=== PATIENT | male | born 2005 | race Caucasian/White ===

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

== ENCOUNTER → 2024-07-09 | Outpatient (CLI) | payer OTHER ==
--- NOTE | 2024-07-09 14:09 | CT ---
EXAMINATION TYPE: CT chest abdomen w con DATE OF EXAM: 07/09/2024 COMPARISON: NONE CLINICAL INDICATION: Male, 19 years old with history of R61 GENERALIZED HYPERHIDROSIS, Night sweats, TECHNIQUE: CT scan of the thorax and abdomen are performed with oral and with IV Contrast, patient injected with 100 mL of Isovue 300. CT DLP: 479.6 mGycm. Automated Exposure Control for Dose Reduction was Utilized. FINDINGS: LUNGS: The lungs are grossly clear, there is no concerning parenchymal mass or focal consolidation id entified. There is no pleural effusion or pneumothorax seen. The tracheobronchial tree is patent. HEART: Size within normal limits. No significant coronary artery calcifications. MEDIASTINUM: There are no greater than 1 cm hilar or mediastinal lymph nodes. No pericardial effusi on is seen. LIVER/GB: Hepatomegaly at 19.1 cm long axis coronal image 35. PANCREAS: No significant abnormality is seen. SPLEEN: No significant abnormality is seen. ADRENALS: No significant abnormality is seen. KIDNEYS: Symmetric cortical medullary uptake and excretion without hydronephrosis seen bilaterally. BOWEL: Oral contrast does not reach colonic level making evaluation of distal bowel slightly suboptim al. Patient also has low-level internal fat making evaluation slightly suboptimal. No abnormal small or large bowel dilatation is seen. LYMPH NODES: No greater than 1cm abdominal lymph nodes are appreciated. OSSEOUS STRUCTURES: There is S-shaped scoliotic curvature. Spine is straightened on sagittal images. OTHER: No significant additional abnormality is seen. IMPRESSION: No suspicious mass or adenopathy. [facility], , 07/09/2024 2:07 PM
== END | disposition home or self-care (01) ==
LOC: RADCTMAIN 11:18
PROVIDERS: ATTEND Family Medicine
DX: R61 Generalized hyperhidrosis (principal); R16.0 Hepatomegaly, not elsewhere classified
CPT/HCPCS: 71260; 74160; Q9967